=== PATIENT | female | born 1995 | race Caucasian/White ===

== ENCOUNTER 2016-02-29 00:27 | Emergency (ER) | payer BC ==
[~2016-02-29] VITALS: Ht 157.5 cm; Wt 92.1 kg
[~2016-02-29 00:27] MED LIST: ACETAMINOPHEN500 MG PO; ADVAIR 250/501 DISK IH; BENADRYL25 MG PO; CIPRO500 MG PO; CRANBERRY TABL1 EACH PO; FIORICET,ESG1 TABLET PO; FLEXERIL10 MG PO; FLONASE16 G1 BOTH NARES; IBUPROFEN600 MG PO; ILOTYCIN1 GM RIGHT EYE; LEVO-T75 MCG PO; LEVOTHYROXINE50 MCG PO; LODINE200 MG PO; LODINE400 MG; LORATADINE10 M2 PO; LYRICA PO; MACRODANTIN100 MG PO; METOPROLOL SUCC50 MG PO; MOBIC7.5 MG PO; MOTRIN600 MG PO; MOTRIN800 MG PO; NAPROSYN500 MG PO; NORCO 5/3251 TABLET PO; PREDNISONE20 MG PO; PRENATAL TABLE1 EAC3 PO; PROAIR HFA8.5 GM IH; PROAIR HFA8.5 GM PO; REGLAN10 MG PO; ROPINIROLE HC0.25 MG PO; SINGULAIR10 MG PO; SUMATRIPTAN SUC50 MG PO; TESSALON PERLE100 MG PO; TESSALON200 MG PO; TOPAMAX25 M1 PO; TRAZODONE HCL50 MG PO; VENTOLIN HFA18 GM IH; VIGAMOX 0.60 DROP/3 RIGHT EYE; ZANTAC150 MG PO; ZITHROMAX500 MG PO; ZOFRAN ODT4 MG PO; ZOFRAN4 MG PO; concerta; lyrica; zoloft PO
[2016-02-29 01:22] LABS: BILIRUBIN NEGATIVE; BLOOD NEGATIVE; COLOR YELLOW ((YELLOW)); GLUCOSE (STRIP) NEGATIVE; KETONES NEGATIVE; LEUKOCYTES NEGATIVE; NITRITE NEGATIVE; PH, URINE 7.5 (5-8); PROTEIN (STRIP) NEGATIVE; SPECIFIC GRAVITY 1.023 (1.000-1.030); UROBILINOGEN 0.2 MG/DL (0.2-1.0)
[2016-02-29 01:43] LABS: ADD MIUA? NO; UCUL ADDED? NO
[2016-02-29 01:52] LABS: INTERNAL CONTROL VALID? YES
[2016-02-29] MEDS ORDERED: MOTRIN800 MG PO (02:07)
[2016-02-29 02:30] VITALS: BP 134/95
== END 2016-02-29 02:35 | disposition home or self-care (01) ==
LOC: EME 00:27
PROVIDERS: Emergency Medicine
DX: M54.5 Low back pain (principal); R30.0 Dysuria; Z87.440 Personal history of urinary (tract) infections
CPT/HCPCS: 81003; 84703; 99281; 99284

== ENCOUNTER 2016-03-26 05:42 | Emergency (ER) | payer BC ==
[~2016-03-26] VITALS: Ht 157.5 cm; Wt 90.9 kg
[2016-03-26 07:40] VITALS: BP 125/87
== END 2016-03-26 07:40 | disposition home or self-care (01) ==
LOC: EME 05:42
DX: G43.909 Migraine, unspecified, not intractable, without status migrainosus (principal); M79.7 Fibromyalgia; I10 Essential (primary) hypertension; K21.9 Gastro-esophageal reflux disease without esophagitis
CPT/HCPCS: 99281; 99284; J1200; J1885; J2765; J7030

== ENCOUNTER 2016-04-05 21:24 | Emergency (ER) | payer BC ==
[~2016-04-05] VITALS: Ht 157.5 cm; Wt 92.8 kg
[2016-04-05] MEDS ORDERED: LEVO-T100 MCG PO (22:26)
[2016-04-05 22:35] LABS: ADD MIUA? YES; BILIRUBIN NEGATIVE; BLOOD NEGATIVE; COLOR YELLOW ((YELLOW)); GLUCOSE (STRIP) NEGATIVE; KETONES NEGATIVE; LEUKOCYTES NEGATIVE; NITRITE NEGATIVE; PROTEIN (STRIP) NEGATIVE; SPECIFIC GRAVITY 1.024 (1.000-1.030); UROBILINOGEN 0.2 MG/DL (0.2-1.0)
[2016-04-05 22:48] LABS: HEMATOCRIT 39.8 % (36.0-46.0); MCH 27.5 PG (29.0-34.0); MCHC 34.4 G/DL (30.0-36.0); MCV 79.8 FL (83-99); MEAN PLAT.VOLUME 9.3 uM^3 (9.5-12.4); PLATELET COUNT 254 K/uL (156-360); RBC DIS.WIDTH-CV 13.8 % (11.8-14.6); RED BLOOD COUNT 4.99 M/uL (3.80-5.20); WHITE BLOOD COUNT 11.2 K/uL (4.1-10.2)
[2016-04-05 22:58] LABS: CHLORIDE 105 mEq/L (99-109); POTASSIUM 4.1 mEq/L (3.7-5.4); SODIUM 138 mEq/L (136-147)
[2016-04-05 22:59] LABS: GLUCOSE 93 mg/dL (70-99)
[2016-04-05 23:01] LABS: ANION GAP 10 MEQ/L (2-14)
[2016-04-05 23:03] LABS: GFR ESTIMATE (CALCULATED) > 59 mL/min/
[2016-04-05 23:04] LABS: UREA NITROGEN (BUN) 13 mg/dL (9-23)
[2016-04-05 23:11] LABS: QUANTITATIVE HCG < 4.0 MIU/ML
[2016-04-05 23:14] LABS: BACTERIA RARE /HPF; EPITHELIAL CELLS 1+ /HPF; MUCUS TRACE /LPF; RED BLOOD CELLS 0-5 /HPF (0-5); UCUL ADDED? NO; WHITE BLOOD CELLS 0-5 /HPF (0-5)
[2016-04-05 23:42] VITALS: BP 152/102
== END 2016-04-05 23:43 | disposition home or self-care (01) ==
LOC: EME 21:24
PROVIDERS: Physician Assistant
DX: M54.5 Low back pain (principal); J02.9 Acute pharyngitis, unspecified; J45.909 Unspecified asthma, uncomplicated; I10 Essential (primary) hypertension; K21.9 Gastro-esophageal reflux disease without esophagitis
CPT/HCPCS: 80048; 81003; 84702; 85027; 87651 90; 99281; 99284

== ENCOUNTER 2016-04-08 21:26 | Emergency (ER) | payer BC ==
[~2016-04-08] VITALS: Ht 157.5 cm; Wt 90.2 kg
[~2016-04-08 21:26] MED LIST changes: +LEVO-T100 MCG PO
[2016-04-08] MEDS ORDERED: CEFTIN250 MG PO (23:07)
[2016-04-08 23:51] VITALS: BP 126/105
== END 2016-04-08 23:52 | disposition home or self-care (01) ==
LOC: EXP 21:26 → EME 21:26 → EXP 23:52
DX: J32.9 Chronic sinusitis, unspecified (principal)
CPT/HCPCS: 99281; 99284; J8540

== ENCOUNTER 2016-04-09 15:23 | Emergency (ER) | payer BC ==
[~2016-04-09] VITALS: Ht 157.5 cm; Wt 89.9 kg
[~2016-04-09 15:23] MED LIST changes: +CEFTIN250 MG PO
[2016-04-09 17:10] LABS: HEMATOCRIT 42.1 % (36.0-46.0); MCH 27.6 PG (29.0-34.0); MCHC 34.9 G/DL (30.0-36.0); MCV 79.1 FL (83-99); MEAN PLAT.VOLUME 9.3 uM^3 (9.5-12.4); PLATELET COUNT 273 K/uL (156-360); RBC DIS.WIDTH-CV 13.9 % (11.8-14.6); RBC DIS.WIDTH-SD 39.8 % (39-53); RED BLOOD COUNT 5.32 M/uL (3.80-5.20); WHITE BLOOD COUNT 11.4 K/uL (4.1-10.2)
[2016-04-09 17:18] LABS: CHLORIDE 108 mEq/L (99-109); POTASSIUM 4.3 mEq/L (3.7-5.4)
[2016-04-09 17:19] LABS: SODIUM 140 mEq/L (136-147)
[2016-04-09 17:20] LABS: GLUCOSE 93 mg/dL (70-99)
[2016-04-09 17:22] LABS: ANION GAP 11 MEQ/L (2-14)
[2016-04-09 17:24] LABS: GFR ESTIMATE (CALCULATED) > 59 mL/min/
[2016-04-09 17:25] LABS: UREA NITROGEN (BUN) 11 mg/dL (9-23)
[2016-04-09 17:31] LABS: TROP-I INTERPRETATION NEGATIVE; TROPONIN-I < 0.01 ng/mL (0.0-0.30)
[2016-04-09 17:33] LABS: QUANTITATIVE HCG < 4.0 MIU/ML
[2016-04-09 18:00] LABS: ADD MIUA? YES; BILIRUBIN NEGATIVE; BLOOD SMALL; COLOR YELLOW ((YELLOW)); GLUCOSE (STRIP) NEGATIVE; KETONES 5; LEUKOCYTES NEGATIVE; NITRITE NEGATIVE; PROTEIN (STRIP) NEGATIVE; SPECIFIC GRAVITY 1.013 (1.000-1.030); UROBILINOGEN 0.2 MG/DL (0.2-1.0)
[2016-04-09 18:04] LABS: BACTERIA NONE SEEN /HPF; EPITHELIAL CELLS RARE /HPF; MUCUS TRACE /LPF; RED BLOOD CELLS 0-5 /HPF (0-5); UCUL ADDED? NO; WHITE BLOOD CELLS 0-5 /HPF (0-5)
[2016-04-09 20:24] LABS: TROP-I INTERPRETATION NEGATIVE; TROPONIN-I < 0.01 ng/mL (0.0-0.30)
[2016-04-09 21:15] VITALS: BP 130/90
== END 2016-04-09 21:16 | disposition home or self-care (01) ==
LOC: EME 15:23
PROVIDERS: Nurse Practitioner Family
DX: R07.9 Chest pain, unspecified (principal); R06.02 Shortness of breath; M79.602 Pain in left arm; E06.3 Autoimmune thyroiditis
CPT/HCPCS: 71020; 80048; 81003; 84484; 84702; 85027; 93005; 94640; 99281; 99284

== ENCOUNTER 2016-05-16 21:38 | Emergency (ER) | payer BC ==
[~2016-05-16] VITALS: Ht 154.9 cm; Wt 91.6 kg
[2016-05-17 01:58] LABS: INTERNAL CONTROL VALID? YES
[2016-05-17 02:04] LABS: ADD MIUA? YES; BILIRUBIN NEGATIVE; BLOOD NEGATIVE; COLOR YELLOW ((YELLOW)); GLUCOSE (STRIP) NEGATIVE; KETONES NEGATIVE; LEUKOCYTES SMALL; NITRITE NEGATIVE; PROTEIN (STRIP) NEGATIVE; SPECIFIC GRAVITY 1.014 (1.000-1.030); UROBILINOGEN 0.2 MG/DL (0.2-1.0)
[2016-05-17 02:06] VITALS: BP 137/92
[2016-05-17 02:17] LABS: BACTERIA NONE SEEN /HPF; EPITHELIAL CELLS 2+ /HPF; MUCUS TRACE /LPF; RED BLOOD CELLS 0-5 /HPF (0-5); UCUL ADDED? NO
== END 2016-05-17 02:07 | disposition home or self-care (01) ==
LOC: EME 21:38
PROVIDERS: Emergency Medicine
DX: G43.909 Migraine, unspecified, not intractable, without status migrainosus (principal); I10 Essential (primary) hypertension; J45.909 Unspecified asthma, uncomplicated; M79.7 Fibromyalgia; K21.9 Gastro-esophageal reflux disease without esophagitis; E06.3 Autoimmune thyroiditis
CPT/HCPCS: 81003; 84703; 99281; 99283; Q0169

== ENCOUNTER 2016-06-26 13:49 | Emergency (ER) | payer BC ==
[~2016-06-26] VITALS: Ht 157.5 cm; Wt 90.3 kg
[2016-06-26 14:40] LABS: HEMATOCRIT 44.1 % (36.0-46.0); MCH 27.5 PG (29.0-34.0); MCHC 33.3 G/DL (30.0-36.0); MCV 82.6 FL (83-99); MEAN PLAT.VOLUME 9.2 uM^3 (9.5-12.4); PLATELET COUNT 282 K/uL (156-360); RED BLOOD COUNT 5.34 M/uL (3.80-5.20); WHITE BLOOD COUNT 10.5 K/uL (4.1-10.2)
[2016-06-26 14:52] LABS: CHLORIDE 106 mEq/L (99-109); POTASSIUM 4.1 mEq/L (3.7-5.4); SODIUM 140 mEq/L (136-147)
[2016-06-26 14:54] LABS: GLUCOSE 94 mg/dL (70-99)
[2016-06-26 14:55] LABS: ANION GAP 9 MEQ/L (2-14)
[2016-06-26 14:56] LABS: TOTAL BILIRUBIN 0.3 mg/dL (0.0-1.0)
[2016-06-26 14:57] LABS: ALKALINE PHOSPHATASE 81 IU/L (3-129)
[2016-06-26 14:58] LABS: GFR ESTIMATE (CALCULATED) > 59 mL/min/
[2016-06-26 14:59] LABS: UREA NITROGEN (BUN) 12 mg/dL (9-23)
[2016-06-26 15:00] LABS: TROP-I INTERPRETATION NEGATIVE; TROPONIN-I < 0.01 ng/mL (0.0-0.30)
[2016-06-26 15:02] LABS: QUANTITATIVE HCG < 4.0 MIU/ML
[2016-06-26 15:11] LABS: ADD MIUA? YES; BILIRUBIN NEGATIVE; BLOOD NEGATIVE; COLOR YELLOW ((YELLOW)); GLUCOSE (STRIP) NEGATIVE; KETONES NEGATIVE; LEUKOCYTES NEGATIVE; NITRITE NEGATIVE; PROTEIN (STRIP) NEGATIVE; SPECIFIC GRAVITY 1.013 (1.000-1.030); UROBILINOGEN 0.2 MG/DL (0.2-1.0)
[2016-06-26 15:15] LABS: BACTERIA NONE SEEN /HPF; EPITHELIAL CELLS RARE /HPF; MUCUS NONE SEEN /LPF; RED BLOOD CELLS NONE SEEN /HPF (0-5); UCUL ADDED? NO; WHITE BLOOD CELLS NONE SEEN /HPF (0-5)
[2016-06-26] MEDS ORDERED: ZOFRAN ODT4 MG PO (16:57)
[2016-06-26 17:03] VITALS: BP 146/82
== END 2016-06-26 17:20 | disposition home or self-care (01) ==
LOC: EME 13:49
PROVIDERS: Physician Assistant
DX: R11.2 Nausea with vomiting, unspecified (principal); B34.9 Viral infection, unspecified; J45.909 Unspecified asthma, uncomplicated; I10 Essential (primary) hypertension; G43.909 Migraine, unspecified, not intractable, without status migrainosus; K21.9 Gastro-esophageal reflux disease without esophagitis; M79.7 Fibromyalgia; E06.3 Autoimmune thyroiditis
CPT/HCPCS: 80053; 81003; 84443; 84484; 84702; 85027; 93005; 99281; 99284; J7030

== ENCOUNTER 2016-07-03 21:15 | Emergency (ER) | payer BC ==
[~2016-07-03] VITALS: Ht 157.5 cm; Wt 90.5 kg
[2016-07-03 21:50] LABS: ADD MIUA? NO; BILIRUBIN NEGATIVE; BLOOD NEGATIVE; COLOR STRAW ((YELLOW)); GLUCOSE (STRIP) NEGATIVE; KETONES NEGATIVE; LEUKOCYTES NEGATIVE; NITRITE NEGATIVE; PROTEIN (STRIP) NEGATIVE; SPECIFIC GRAVITY 1.005 (1.000-1.030); UROBILINOGEN 0.2 MG/DL (0.2-1.0)
[2016-07-03 22:04] LABS: INTERNAL CONTROL VALID? YES
[2016-07-03 23:22] VITALS: BP 139/100
== END 2016-07-03 23:24 | disposition home or self-care (01) ==
LOC: EME 21:15
PROVIDERS: Nurse Practitioner Family
DX: R51 Headache (principal)
CPT/HCPCS: 81003; 84703; 99281; 99284; J1200; J1885; J2765; J7030

== ENCOUNTER 2016-09-06 23:10 | Emergency (ER) | payer BC ==
[~2016-09-06] VITALS: Ht 154.9 cm; Wt 91.3 kg
[2016-09-07 00:32] LABS: HEMATOCRIT 43.5 % (36.0-46.0); MCH 27.2 PG (29.0-34.0); MCHC 33.3 G/DL (30.0-36.0); MCV 81.6 FL (83-99); MEAN PLAT.VOLUME 9.5 uM^3 (9.5-12.4); PLATELET COUNT 280 K/uL (156-360); RBC DIS.WIDTH-CV 13.2 % (11.8-14.6); RED BLOOD COUNT 5.33 M/uL (3.80-5.20)
[2016-09-07 00:46] LABS: CHLORIDE 104 mEq/L (99-109); POTASSIUM 3.7 mEq/L (3.7-5.4); SODIUM 138 mEq/L (136-147)
[2016-09-07 00:47] LABS: GLUCOSE 85 mg/dL (70-99)
[2016-09-07 00:49] LABS: ANION GAP 9 MEQ/L (2-14)
[2016-09-07 00:51] LABS: GFR ESTIMATE (CALCULATED) > 59 mL/min/
[2016-09-07 00:52] LABS: UREA NITROGEN (BUN) 8 mg/dL (9-23)
[2016-09-07 00:58] LABS: TROP-I INTERPRETATION NEGATIVE; TROPONIN-I < 0.01 ng/mL (0.0-0.30)
[2016-09-07 03:12] LABS: BILIRUBIN NEGATIVE; BLOOD NEGATIVE; COLOR YELLOW ((YELLOW)); GLUCOSE (STRIP) NEGATIVE; KETONES 5; LEUKOCYTES NEGATIVE; NITRITE NEGATIVE; PROTEIN (STRIP) 30; SPECIFIC GRAVITY 1.026 (1.000-1.030); UROBILINOGEN 0.2 MG/DL (0.2-1.0)
[2016-09-07 03:13] LABS: ADD MIUA? NO; UCUL ADDED? NO
[2016-09-07 03:18] LABS: QUANTITATIVE HCG < 4.0 MIU/ML
[2016-09-07 03:47] VITALS: BP 145/100
== END 2016-09-07 03:48 | disposition home or self-care (01) ==
LOC: EXP 23:10 → EME 23:10 → EXP 09-07 03:48
PROVIDERS: Emergency Medicine
DX: R07.9 Chest pain, unspecified (principal); R55 Syncope and collapse; D72.829 Elevated white blood cell count, unspecified; R00.2 Palpitations; M54.2 Cervicalgia; I10 Essential (primary) hypertension; E06.3 Autoimmune thyroiditis
CPT/HCPCS: 71020; 80048; 81003; 84484; 84702; 85027; 93005; 99281; 99284

== ENCOUNTER 2016-10-22 01:50 | Emergency (ER) | payer BC ==
[~2016-10-22] VITALS: Ht 157.5 cm; Wt 89.8 kg
[2016-10-22 03:03] LABS: EOSINOPHIL (%) 0.3 % (0-5); HEMATOCRIT 34.9 % (36.0-46.0); IMMATURE GRANULOCYTE (%) 0.4 % (0.0-0.7); LYMPHOCYTE COUNT 3.1 K/uL (1.0-2.8); MCH 27.2 PG (29.0-34.0); MCHC 32.4 G/DL (30.0-36.0); MCV 84.1 FL (83-99); MEAN PLAT.VOLUME 9.5 uM^3 (9.5-12.4); MONOCYTE (%) 5.8 % (3-12); MONOCYTE COUNT 0.6 K/uL (0-0.8); NEUTROPHIL (%) 61.7 % (45-76); PLATELET COUNT 266 K/uL (156-360); RBC DIS.WIDTH-CV 12.8 % (11.8-14.6); RBC DIS.WIDTH-SD 38.7 % (39-53); RED BLOOD COUNT 4.15 M/uL (3.80-5.20); WHITE BLOOD COUNT 9.8 K/uL (4.1-10.2)
[2016-10-22 03:10] LABS: CHLORIDE 106 mEq/L (99-109)
[2016-10-22 03:11] LABS: POTASSIUM 3.7 mEq/L (3.7-5.4); SODIUM 138 mEq/L (136-147)
[2016-10-22 03:13] LABS: GLUCOSE 90 mg/dL (70-99)
[2016-10-22 03:14] LABS: ANION GAP 8 MEQ/L (2-14)
[2016-10-22 03:15] LABS: TOTAL BILIRUBIN 0.2 mg/dL (0.0-1.0)
[2016-10-22 03:16] LABS: ALKALINE PHOSPHATASE 50 IU/L (3-129); GFR ESTIMATE (CALCULATED) > 59 mL/min/
[2016-10-22 03:18] LABS: UREA NITROGEN (BUN) 10 mg/dL (9-23)
[2016-10-22 03:20] LABS: LIPASE 14 U/L (1.0-51.0)
[2016-10-22 03:26] LABS: QUANTITATIVE HCG < 4.0 MIU/ML
[2016-10-22] MEDS ORDERED: ZOFRAN ODT4 MG PO (04:04)
[2016-10-22 04:12] VITALS: BP 121/80
== END 2016-10-22 04:13 | disposition home or self-care (01) ==
LOC: EME 01:50
PROVIDERS: Emergency Medicine
DX: R10.13 Epigastric pain (principal); R11.2 Nausea with vomiting, unspecified; R19.7 Diarrhea, unspecified; I10 Essential (primary) hypertension; J45.909 Unspecified asthma, uncomplicated; K21.9 Gastro-esophageal reflux disease without esophagitis; M79.7 Fibromyalgia; E06.3 Autoimmune thyroiditis; G25.81 Restless legs syndrome
CPT/HCPCS: 74177; 80053; 83690; 84702; 85025; 99281; 99284; J2270; J2405; J7030

== ENCOUNTER 2016-12-02 02:58 | Emergency (ER) | payer OTHER, BC ==
[~2016-12-02] VITALS: Ht 170.2 cm; Wt 89.9 kg
[2016-12-02] MEDS ORDERED: FLEXERIL10 MG PO (04:25)
[2016-12-02] MEDS ORDERED: PERCOCET 5/31 TABLET PO (04:25)
[2016-12-02 04:26] VITALS: BP 137/88
== END 2016-12-02 04:43 | disposition home or self-care (01) ==
LOC: EXP 02:58 → EME 02:58 → EXP 04:43
DX: S39.012A Strain of muscle, fascia and tendon of lower back, initial encounter (principal); V40.5XXA Car driver injured in collision with pedestrian or animal in traffic accident, initial encounter; Z88.0 Allergy status to penicillin
CPT/HCPCS: 72100; 99281; 99284

== ENCOUNTER 2016-12-04 14:18 | Emergency (ER) | payer OTHER, BC ==
[~2016-12-04] VITALS: Ht 157.5 cm; Wt 88.5 kg
[~2016-12-04 14:18] MED LIST changes: +PERCOCET 5/31 TABLET PO
[2016-12-04 18:46] VITALS: BP 146/116
== END 2016-12-04 18:47 | disposition home or self-care (01) ==
LOC: EME 14:18
DX: S39.012A Strain of muscle, fascia and tendon of lower back, initial encounter (principal); R07.81 Pleurodynia; V40.5XXA Car driver injured in collision with pedestrian or animal in traffic accident, initial encounter; Y92.410 Unspecified street and highway as the place of occurrence of the external cause
CPT/HCPCS: 71020; 99281; 99284; J1885

== ENCOUNTER 2017-02-02 18:09 | Emergency (ER) | payer BC ==
[~2017-02-02] VITALS: Ht 157.5 cm; Wt 90.4 kg
[2017-02-02 18:45] LABS: HEMATOCRIT 41.2 % (36.0-46.0); MCH 24.6 PG (29.0-34.0); MCV 76.7 FL (83-99); MEAN PLAT.VOLUME 9.5 uM^3 (9.5-12.4); PLATELET COUNT 256 K/uL (156-360); RBC DIS.WIDTH-CV 16.4 % (11.8-14.6); RBC DIS.WIDTH-SD 45.1 % (39-53); RED BLOOD COUNT 5.37 M/uL (3.80-5.20); WHITE BLOOD COUNT 9.2 K/uL (4.1-10.2)
[2017-02-02 18:55] LABS: CHLORIDE 105 mEq/L (99-109); POTASSIUM 4.2 mEq/L (3.7-5.4)
[2017-02-02 18:56] LABS: SODIUM 139 mEq/L (136-147)
[2017-02-02 18:58] LABS: GLUCOSE 95 mg/dL (70-99)
[2017-02-02 18:59] LABS: ANION GAP 8 MEQ/L (2-14)
[2017-02-02 19:00] LABS: TOTAL BILIRUBIN 0.4 mg/dL (0.0-1.0)
[2017-02-02 19:01] LABS: ALKALINE PHOSPHATASE 76 IU/L (3-129); GFR ESTIMATE (CALCULATED) > 59 mL/min/
[2017-02-02 19:03] LABS: UREA NITROGEN (BUN) 10 mg/dL (9-23)
[2017-02-02 19:11] LABS: QUANTITATIVE HCG < 4.0 MIU/ML
[2017-02-02 20:57] LABS: ADD MIUA? YES; BILIRUBIN NEGATIVE; BLOOD NEGATIVE; COLOR YELLOW ((YELLOW)); GLUCOSE (STRIP) NEGATIVE; KETONES NEGATIVE; LEUKOCYTES SMALL; NITRITE NEGATIVE; PROTEIN (STRIP) 30; SPECIFIC GRAVITY 1.024 (1.000-1.030); UROBILINOGEN 0.2 MG/DL (0.2-1.0)
[2017-02-02 21:02] LABS: BACTERIA RARE /HPF; EPITHELIAL CELLS 4+ /HPF; MUCUS TRACE /LPF; RED BLOOD CELLS 0-5 /HPF (0-5); UCUL ADDED? YES
[2017-02-02] MEDS ORDERED: ZOFRAN ODT4 MG PO (22:33)
[2017-02-02 22:42] VITALS: BP 120/71
== END 2017-02-02 22:43 | disposition home or self-care (01) ==
LOC: EME 18:09 → RME 18:09
DX: R11.2 Nausea with vomiting, unspecified (principal); M79.7 Fibromyalgia; I10 Essential (primary) hypertension; J45.909 Unspecified asthma, uncomplicated; K21.9 Gastro-esophageal reflux disease without esophagitis; E06.3 Autoimmune thyroiditis; Z88.2 Allergy status to sulfonamides; Z88.0 Allergy status to penicillin; Z88.1 Allergy status to other antibiotic agents
CPT/HCPCS: 80053; 81003; 84702; 85027; 87086; 99281; 99285

== ENCOUNTER 2017-02-04 19:51 | Emergency (ER) | payer BC ==
[~2017-02-04] VITALS: Ht 157.5 cm; Wt 91.9 kg
[2017-02-04 20:13] LABS: HEMATOCRIT 41.1 % (36.0-46.0); MCH 24.8 PG (29.0-34.0); MCHC 32.6 G/DL (30.0-36.0); MCV 76.1 FL (83-99); MEAN PLAT.VOLUME 9.2 uM^3 (9.5-12.4); PLATELET COUNT 270 K/uL (156-360); RBC DIS.WIDTH-CV 16.4 % (11.8-14.6); RBC DIS.WIDTH-SD 44.6 % (39-53); WHITE BLOOD COUNT 7.8 K/uL (4.1-10.2)
[2017-02-04 20:21] LABS: CHLORIDE 108 mEq/L (99-109); POTASSIUM 4.2 mEq/L (3.7-5.4); SODIUM 139 mEq/L (136-147)
[2017-02-04 20:23] LABS: GLUCOSE 114 mg/dL (70-99)
[2017-02-04 20:24] LABS: ANION GAP 8 MEQ/L (2-14)
[2017-02-04 20:26] LABS: ADD MIUA? YES; BILIRUBIN NEGATIVE; BLOOD NEGATIVE; COLOR YELLOW ((YELLOW)); GLUCOSE (STRIP) NEGATIVE; KETONES NEGATIVE; LEUKOCYTES NEGATIVE; NITRITE NEGATIVE; PROTEIN (STRIP) NEGATIVE; SPECIFIC GRAVITY 1.023 (1.000-1.030); UROBILINOGEN 0.2 MG/DL (0.2-1.0)
[2017-02-04 20:27] LABS: ALKALINE PHOSPHATASE 75 IU/L (3-129); GFR ESTIMATE (CALCULATED) > 59 mL/min/; TOTAL BILIRUBIN 0.3 mg/dL (0.0-1.0)
[2017-02-04 20:28] LABS: UREA NITROGEN (BUN) 9 mg/dL (9-23)
[2017-02-04 20:30] LABS: LIPASE 18 U/L (1.0-51.0)
[2017-02-04 20:37] LABS: QUANTITATIVE HCG < 4.0 MIU/ML
[2017-02-04 20:57] LABS: AMORPHOUS PHOSPHATE CRYSTALS 4+; BACTERIA NONE SEEN /HPF; CASTS PRESENT /LPF; COARSE GRANULAR CASTS 0-5 /LPF; CRYSTALS PRESENT; EPITHELIAL CELLS 1+ /HPF; MUCUS NONE SEEN /LPF; RED BLOOD CELLS NONE SEEN /HPF (0-5); UCUL ADDED? NO; WHITE BLOOD CELLS NONE SEEN /HPF (0-5)
[2017-02-04] MEDS ORDERED: NAPROXEN500 MG PO (22:13)
[2017-02-04 23:03] VITALS: BP 161/98
== END 2017-02-04 23:04 | disposition home or self-care (01) ==
LOC: EME 19:51
DX: N83.201 Unspecified ovarian cyst, right side (principal); E06.3 Autoimmune thyroiditis; M79.7 Fibromyalgia; K21.9 Gastro-esophageal reflux disease without esophagitis; J45.909 Unspecified asthma, uncomplicated; I10 Essential (primary) hypertension; G25.81 Restless legs syndrome; Z88.2 Allergy status to sulfonamides; Z88.0 Allergy status to penicillin
CPT/HCPCS: 74177; 80053; 81003; 83690; 84702; 85027; 99281; 99284; J1885; J2405

== ENCOUNTER 2017-02-06 02:21 | Emergency (ER) | payer BC ==
[~2017-02-06] VITALS: Ht 157.5 cm; Wt 91.3 kg
[~2017-02-06 02:21] MED LIST changes: +NAPROXEN500 MG PO
[2017-02-06 02:44] LABS: HEMATOCRIT 41.8 % (36.0-46.0); MCH 24.6 PG (29.0-34.0); MCHC 32.3 G/DL (30.0-36.0); MCV 76.3 FL (83-99); MEAN PLAT.VOLUME 9.2 uM^3 (9.5-12.4); PLATELET COUNT 270 K/uL (156-360); RBC DIS.WIDTH-CV 16.2 % (11.8-14.6); RBC DIS.WIDTH-SD 44.7 % (39-53); RED BLOOD COUNT 5.48 M/uL (3.80-5.20)
[2017-02-06 02:53] LABS: CHLORIDE 110 mEq/L (99-109); POTASSIUM 4.2 mEq/L (3.7-5.4); SODIUM 140 mEq/L (136-147)
[2017-02-06 02:55] LABS: GLUCOSE 102 mg/dL (70-99)
[2017-02-06 02:56] LABS: ANION GAP 8 MEQ/L (2-14)
[2017-02-06 02:58] LABS: ADD MIUA? YES; BILIRUBIN NEGATIVE; BLOOD NEGATIVE; COLOR YELLOW ((YELLOW)); GLUCOSE (STRIP) NEGATIVE; KETONES NEGATIVE; LEUKOCYTES TRACE; NITRITE NEGATIVE; PROTEIN (STRIP) 30; SPECIFIC GRAVITY 1.036 (1.000-1.030); UROBILINOGEN 0.2 MG/DL (0.2-1.0)
[2017-02-06 02:59] LABS: GFR ESTIMATE (CALCULATED) > 59 mL/min/
[2017-02-06 03:00] LABS: UREA NITROGEN (BUN) 12 mg/dL (9-23)
[2017-02-06 03:05] LABS: BACTERIA RARE /HPF; BUDDING YEAST RARE; EPITHELIAL CELLS 2+ /HPF; MUCUS TRACE /LPF; UCUL ADDED? NO; WHITE BLOOD CELLS 0-5 /HPF (0-5)
[2017-02-06 03:07] LABS: QUANTITATIVE HCG < 4.0 MIU/ML
[2017-02-06 03:41] LABS: ALKALINE PHOSPHATASE 73 IU/L (3-129)
[2017-02-06 03:42] LABS: TOTAL BILIRUBIN 0.2 mg/dL (0.0-1.0)
[2017-02-06 03:50] LABS: TROP-I INTERPRETATION NEGATIVE; TROPONIN-I < 0.01 ng/mL (0.0-0.30)
[2017-02-06 03:57] LABS: LIPASE 17 U/L (1.0-51.0)
[2017-02-06] MEDS ORDERED: CARAFATE1 GM PO (05:30)
[2017-02-06] MEDS ORDERED: MAALOX ADVANCE355 ML PO (05:30)
[2017-02-06 05:54] LABS: TROP-I INTERPRETATION NEGATIVE; TROPONIN-I < 0.01 ng/mL (0.0-0.30)
[2017-02-06 05:58] VITALS: BP 111/88
== END 2017-02-06 06:00 | disposition home or self-care (01) ==
LOC: EME 02:21
PROVIDERS: Emergency Medicine
DX: R10.9 Unspecified abdominal pain (principal); R07.9 Chest pain, unspecified; J45.909 Unspecified asthma, uncomplicated; M79.7 Fibromyalgia; I10 Essential (primary) hypertension; G43.909 Migraine, unspecified, not intractable, without status migrainosus; K21.9 Gastro-esophageal reflux disease without esophagitis; Z88.2 Allergy status to sulfonamides; Z88.0 Allergy status to penicillin; Z88.1 Allergy status to other antibiotic agents
CPT/HCPCS: 76705; 80053; 81003; 83690; 84484; 84702; 85027; 93005; J2405; J3010

== ENCOUNTER → 2017-02-09 | Outpatient (CLI) | payer BC ==
[~2017-02-09] MED LIST changes: +CARAFATE1 GM PO; +MAALOX ADVANCE355 ML PO
== END | disposition home or self-care (01) ==
LOC: NUC 07:39
DX: R10.11 Right upper quadrant pain (principal); R11.0 Nausea
CPT/HCPCS: 78226; A9537

== ENCOUNTER → 2017-02-21 | Outpatient (CLI) | payer BC ==
[~2017-02-21] VITALS: Ht 157.5 cm; Wt 92.5 kg
[~2017-02-21] MED LIST changes: +HEADACHE RELIE1 EAC3 PO; +SYNTHROID50 MCG PO
== END | disposition home or self-care (01) ==
LOC: AMB 09:01
DX: K29.90 Gastroduodenitis, unspecified, without bleeding (principal); K80.10 Calculus of gallbladder with chronic cholecystitis without obstruction; J45.909 Unspecified asthma, uncomplicated; F41.8 Other specified anxiety disorders; E03.9 Hypothyroidism, unspecified; Z88.0 Allergy status to penicillin; Z88.2 Allergy status to sulfonamides
CPT/HCPCS: 88305; 88342 TC; J2250

== ENCOUNTER 2017-03-26 10:55 | Day surgery (SDC) | payer BC ==
[~2017-03-26] VITALS: Ht 157.5 cm; Wt 93.4 kg
[~2017-03-26 10:55] MED LIST changes: +PROTONIX40 MG PO
[2017-03-26 12:01] VITALS: BP 133/92
[2017-03-26] MEDS ORDERED: COLACE100 MG PO (13:10)
[2017-03-26] MEDS ORDERED: PERCOCET 5/31 TABLET PO (13:10)
[2017-03-26 16:35] VITALS: BP 133/85
[2017-03-26 17:30] VITALS: BP 128/75
[2017-03-26 19:06] VITALS: BP 123/75
[2017-03-27] MEDS ORDERED: CELEXA20 MG PO (07:37)
[2017-03-27] MEDS ORDERED: VERAPAMIL HCL120 M2 PO (07:37)
== END 2017-03-26 19:12 | disposition home or self-care (01) ==
LOC: SDC 10:55
PROC: 0FT44ZZ Resection of Gallbladder, Percutaneous Endoscopic Approach (ICD-10-PCS; principal; 2017-03-26)
DX: K80.10 Calculus of gallbladder with chronic cholecystitis without obstruction (principal); E06.3 Autoimmune thyroiditis
CPT/HCPCS: 88304; J0131; J1100; J1170; J1580; J1885; J2250; J2405; J2710; J2765; J3010; J7050

== ENCOUNTER 2017-03-27 04:24 | Observation (INO) | payer BC ==
[~2017-03-27] VITALS: Ht 157.5 cm; Wt 95.6 kg
[~2017-03-27 04:24] MED LIST changes: +COLACE100 MG PO
[2017-03-27 05:37] LABS: BASOPHIL (%) 0.1 % (0-1); EOSINOPHIL (%) 0 % (0-5); HEMATOCRIT 36.7 % (36.0-46.0); HEMOGLOBIN 12.3 G/DL (11.9-15.5); IMMATURE GRANULOCYTE (%) 0.5 % (0.0-0.7); LYMPHOCYTE (%) 12.3 % (15-42); LYMPHOCYTE COUNT 1.4 K/uL (1.0-2.8); MCH 25.6 PG (29.0-34.0); MCHC 33.5 G/DL (30.0-36.0); MCV 76.5 FL (83-99); MONOCYTE (%) 7.7 % (3-12); MONOCYTE COUNT 0.9 K/uL (0-0.8); NEUTROPHIL (%) 79.4 % (45-76); NEUTROPHIL COUNT 9.2 K/uL (1.8-6.4); PLATELET COUNT 258 K/uL (156-360); RBC DIS.WIDTH-CV 14.7 % (11.8-14.6); RBC DIS.WIDTH-SD 40.3 % (39-53); WHITE BLOOD COUNT 11.6 K/uL (4.1-10.2)
[2017-03-27 05:41] LABS: INTER. NORMALIZED RATIO 1.2
[2017-03-27 05:43] LABS: PTT 33.8 SEC (25-37)
[2017-03-27 05:51] LABS: TROP-I INTERPRETATION NEGATIVE; TROPONIN-I < 0.01 ng/mL (0.0-0.30)
[2017-03-27 05:55] LABS: ALBUMIN 4.1 g/dL (3.2-4.8)
[2017-03-27 05:56] LABS: CHLORIDE 106 mEq/L (99-109); POTASSIUM 4.1 mEq/L (3.7-5.4); SODIUM 138 mEq/L (136-147)
[2017-03-27 05:58] LABS: GLUCOSE 111 mg/dL (70-99); TOTAL PROTEIN 6.7 g/dL (6.4-8.3)
[2017-03-27 06:00] LABS: TOTAL BILIRUBIN 0.3 mg/dL (0.0-1.0)
[2017-03-27 06:02] LABS: ALKALINE PHOSPHATASE 83 IU/L (3-129); CREATININE 0.7 mg/dL (0.6-1.3); GFR ESTIMATE (CALCULATED) > 59 mL/min/
[2017-03-27 06:03] LABS: AST (GOT) 47 IU/L (2-34); DIRECT BILIRUBIN 0.1 mg/dL (0.0-0.3); UREA NITROGEN (BUN) 7 mg/dL (9-23)
[2017-03-27 06:05] LABS: ALT (GPT) 56 IU/L (3-49); LIPASE 3 U/L (1.0-51.0)
[2017-03-27 06:09] LABS: APPEARANCE SL.HAZY ((CLEAR)); BILIRUBIN NEGATIVE; BLOOD NEGATIVE; COLOR YELLOW ((YELLOW)); GLUCOSE (STRIP) NEGATIVE; KETONES NEGATIVE; LEUKOCYTES NEGATIVE; NITRITE NEGATIVE; PROTEIN (STRIP) NEGATIVE; SPECIFIC GRAVITY 1.009 (1.000-1.030); UROBILINOGEN 0.2 MG/DL (0.2-1.0)
[2017-03-27 06:11] LABS: QUANTITATIVE HCG < 4.0 MIU/ML
[2017-03-27 06:17] LABS: BACTERIA RARE /HPF; EPITHELIAL CELLS 3+ /HPF; MUCUS TRACE /LPF; RED BLOOD CELLS 0-5 /HPF (0-5)
[2017-03-27] MEDS ORDERED: CELEXA20 MG PO (07:37)
[2017-03-27] MEDS ORDERED: VERAPAMIL HCL120 M2 PO (07:37)
[2017-03-27 08:50] LABS: HDL CHOLESTEROL 38 MG/DL (Desirable>=50); LDL CHOLESTEROL 156 mg/dL (Desirable<100); NON-HDL CHOLESTEROL 179 mg/dL (Desirable<160); TOTAL CHOLESTEROL 217 mg/dL (Desirable<200); TRIGLYCERIDES 117 MG/DL (Normal: <150)
[2017-03-27 13:11] LABS: TROP-I INTERPRETATION NEGATIVE; TROPONIN-I < 0.01 ng/mL (0.0-0.30)
[2017-03-27 14:29] VITALS: BP 126/76
[2017-03-27 18:46] LABS: TROP-I INTERPRETATION NEGATIVE; TROPONIN-I < 0.01 ng/mL (0.0-0.30)
[2017-03-27 20:00] VITALS: BP 120/88
[2017-03-28 00:12] VITALS: BP 134/95
[2017-03-28 04:17] VITALS: BP 131/87
[2017-03-28 05:14] LABS: HEMATOCRIT 35.7 % (36.0-46.0); HEMOGLOBIN 11.4 G/DL (11.9-15.5); MCH 25.3 PG (29.0-34.0); MCHC 31.9 G/DL (30.0-36.0); MCV 79.3 FL (83-99); PLATELET COUNT 224 K/uL (156-360); RBC DIS.WIDTH-CV 15.1 % (11.8-14.6); RBC DIS.WIDTH-SD 43.3 % (39-53); WHITE BLOOD COUNT 8.8 K/uL (4.1-10.2)
[2017-03-28 05:40] LABS: CHLORIDE 104 MEQ/L (99-109); CREATININE 0.7 MG/DL (0.6-1.3); GFR ESTIMATE (CALCULATED) > 59 mL/min/; GLUCOSE 94 mg/dL (70-99); POTASSIUM 3.8 MEQ/L (3.7-5.4); SODIUM 138 MEQ/L (136-147); UREA NITROGEN (BUN) 6 mg/dL (9-23)
[2017-03-28 08:30] VITALS: BP 132/70
[2017-03-28 11:22] VITALS: BP 136/88
[2017-03-28 15:52] VITALS: BP 131/87
[2017-03-28 20:00] VITALS: BP 135/83
[2017-03-29 00:12] VITALS: BP 128/89
[2017-03-29 04:40] VITALS: BP 126/88
[2017-03-29 06:01] LABS: HEMATOCRIT 38.6 % (36.0-46.0); HEMOGLOBIN 12.5 G/DL (11.9-15.5); MCH 25.4 PG (29.0-34.0); MCHC 32.4 G/DL (30.0-36.0); MCV 78.5 FL (83-99); PLATELET COUNT 239 K/uL (156-360); RBC DIS.WIDTH-CV 14.6 % (11.8-14.6); RBC DIS.WIDTH-SD 40.8 % (39-53); RED BLOOD COUNT 4.92 M/uL (3.80-5.20); WHITE BLOOD COUNT 8.3 K/uL (4.1-10.2)
[2017-03-29 06:19] LABS: ALBUMIN 3.9 G/DL (3.2-4.8); ALKALINE PHOSPHATASE 74 IU/L (3-129); CHLORIDE 102 MEQ/L (99-109); CREATININE 0.8 MG/DL (0.6-1.3); GFR ESTIMATE (CALCULATED) > 59 mL/min/; GLUCOSE 88 mg/dL (70-99); POTASSIUM 3.8 MEQ/L (3.7-5.4); SODIUM 139 MEQ/L (136-147); TOTAL PROTEIN 6.6 G/DL (6.4-8.3); UREA NITROGEN (BUN) 9 mg/dL (9-23)
[2017-03-29 06:21] LABS: ALT (GPT) 91 IU/L (3-49); AST (GOT) 43 IU/L (2-34); TOTAL BILIRUBIN 0.5 MG/DL (0.0-1.0)
[2017-03-29 06:35] LABS: LIPASE 11 U/L (1.0-51.0)
[2017-03-29 08:19] VITALS: BP 125/86
[2017-03-29] MEDS ORDERED: ONDANSETRON ODT4 MG PO (09:36)
== END 2017-03-29 11:31 | disposition home or self-care (01) ==
LOC: EME 04:24 → EDOF 07:43 → 5WEST 07:43 → EDOF 07:43 → ENRESERV 07:48 → 5WEST 13:51
PROVIDERS: Family Medicine; Internal Medicine; Physician Assistant
DX: R11.2 Nausea with vomiting, unspecified (principal); R00.2 Palpitations; R07.89 Other chest pain; R42 Dizziness and giddiness; Z98.890 Other specified postprocedural states; Z90.49 Acquired absence of other specified parts of digestive tract; E06.3 Autoimmune thyroiditis; M79.7 Fibromyalgia; R01.1 Cardiac murmur, unspecified; Z79.82 Long term (current) use of aspirin; Z82.49 Family history of ischemic heart disease and other diseases of the circulatory system; D72.829 Elevated white blood cell count, unspecified; Z88.0 Allergy status to penicillin; Z88.1 Allergy status to other antibiotic agents; Z88.2 Allergy status to sulfonamides; Z91.018 Allergy to other foods; Z91.09 Other allergy status, other than to drugs and biological substances
CPT/HCPCS: 71275; 80048; 80053; 80061; 80076; 81003; 83690; 84443; 84484; 84702; 85025; 85027; 85610; 85730; 93005; 99281; 99285; G0378; J1200; J1650; J2270; J2405; J3010; J7030

== ENCOUNTER 2017-05-03 00:49 | Emergency (ER) | payer BC ==
[~2017-05-03] VITALS: Ht 157.5 cm; Wt 91.0 kg
[~2017-05-03 00:49] MED LIST changes: +CELEXA20 MG PO; +ONDANSETRON ODT4 MG PO; +VERAPAMIL HCL120 M2 PO
[2017-05-03 01:13] LABS: HEMATOCRIT 40.5 % (36.0-46.0); HEMOGLOBIN 13.4 G/DL (11.9-15.5); MCHC 33.1 G/DL (30.0-36.0); MCV 78.6 FL (83-99); PLATELET COUNT 236 K/uL (156-360); RBC DIS.WIDTH-CV 14.2 % (11.8-14.6); RBC DIS.WIDTH-SD 40.4 % (39-53); RED BLOOD COUNT 5.15 M/uL (3.80-5.20); WHITE BLOOD COUNT 8.7 K/uL (4.1-10.2)
[2017-05-03 01:22] LABS: CHLORIDE 107 mEq/L (99-109); SODIUM 141 mEq/L (136-147)
[2017-05-03 01:23] LABS: GLUCOSE 92 mg/dL (70-99)
[2017-05-03 01:27] LABS: CREATININE 0.8 mg/dL (0.6-1.3); GFR ESTIMATE (CALCULATED) > 59 mL/min/
[2017-05-03 01:28] LABS: UREA NITROGEN (BUN) 10 mg/dL (9-23)
[2017-05-03 02:50] LABS: D-DIMER ELISA < 150.00 ng/mLDDU (<230)
[2017-05-03 03:03] LABS: QUANTITATIVE HCG < 4.0 MIU/ML; TROP-I INTERPRETATION NEGATIVE; TROPONIN-I < 0.01 ng/mL (0.0-0.30)
[2017-05-03 03:56] LABS: APPEARANCE CLEAR ((CLEAR)); BILIRUBIN NEGATIVE; BLOOD NEGATIVE; COLOR STRAW ((YELLOW)); GLUCOSE (STRIP) NEGATIVE; KETONES NEGATIVE; LEUKOCYTES NEGATIVE; NITRITE NEGATIVE; PROTEIN (STRIP) NEGATIVE; SPECIFIC GRAVITY 1.014 (1.000-1.030); UCUL ADDED? NO; UROBILINOGEN 0.2 MG/DL (0.2-1.0)
[2017-05-03] MEDS ORDERED: MECLIZINE HCL25 MG PO (04:27)
[2017-05-03 04:40] VITALS: BP 133/82
[2017-05-03 07:51] LABS: THYROTROPIN (TSH) 1.6 MIU/L (0.4-5.5)
== END 2017-05-03 04:42 | disposition home or self-care (01) ==
LOC: EME 00:49
PROVIDERS: Emergency Medicine
DX: R42 Dizziness and giddiness (principal); R55 Syncope and collapse; R51 Headache; H53.8 Other visual disturbances; E06.3 Autoimmune thyroiditis
CPT/HCPCS: 70450; 71046; 80048; 81003; 84443; 84484; 84702; 85027; 85379; 93005; 99281; 99284

== ENCOUNTER 2017-07-04 19:00 | Emergency (ER) | payer BC ==
[~2017-07-04] VITALS: Ht 157.5 cm; Wt 89.7 kg
[~2017-07-04 19:00] MED LIST changes: +MECLIZINE HCL25 MG PO
[2017-07-04 19:43] LABS: HEMATOCRIT 41.7 % (36.0-46.0); HEMOGLOBIN 14.3 G/DL (11.9-15.5); MCH 26.7 PG (29.0-34.0); MCHC 34.3 G/DL (30.0-36.0); MCV 77.9 FL (83-99); PLATELET COUNT 231 K/uL (156-360); RBC DIS.WIDTH-CV 14.7 % (11.8-14.6); RBC DIS.WIDTH-SD 41.1 % (39-53); RED BLOOD COUNT 5.35 M/uL (3.80-5.20); WHITE BLOOD COUNT 8.5 K/uL (4.1-10.2)
[2017-07-04 19:52] LABS: CHLORIDE 107 mEq/L (99-109); SODIUM 139 mEq/L (136-147)
[2017-07-04 19:54] LABS: GLUCOSE 116 mg/dL (70-99)
[2017-07-04 19:58] LABS: CREATININE 1.1 mg/dL (0.6-1.3); GFR ESTIMATE (CALCULATED) > 59 mL/min/
[2017-07-04 19:59] LABS: UREA NITROGEN (BUN) 8 mg/dL (9-23)
[2017-07-04 20:04] LABS: TROP-I INTERPRETATION NEGATIVE; TROPONIN-I < 0.01 ng/mL (0.0-0.30)
[2017-07-04] MEDS ORDERED: ZOFRAN ODT4 MG PO (22:44)
[2017-07-04 23:04] LABS: TROP-I INTERPRETATION NEGATIVE; TROPONIN-I < 0.01 ng/mL (0.0-0.30)
[2017-07-04 23:13] VITALS: BP 124/79
== END 2017-07-04 23:17 | disposition home or self-care (01) ==
LOC: EME 19:00
PROVIDERS: Nurse Practitioner Acute Care
DX: R07.9 Chest pain, unspecified (principal); M25.512 Pain in left shoulder; R11.0 Nausea; Z88.0 Allergy status to penicillin; Z88.1 Allergy status to other antibiotic agents; Z88.2 Allergy status to sulfonamides
CPT/HCPCS: 71046; 80048; 84484; 85027; 93005; 99281; 99285

== ENCOUNTER 2017-08-01 23:25 | Emergency (ER) | payer BC ==
[~2017-08-01] VITALS: Ht 157.5 cm; Wt 89.1 kg
[2017-08-02 01:45] VITALS: BP 132/86
== END 2017-08-02 02:08 | disposition home or self-care (01) ==
LOC: EME → EDBD 23:25 → EME 08-02 02:08
DX: G89.18 Other acute postprocedural pain (principal); R07.9 Chest pain, unspecified; Z98.890 Other specified postprocedural states; K21.9 Gastro-esophageal reflux disease without esophagitis; J45.909 Unspecified asthma, uncomplicated; M79.7 Fibromyalgia; G25.81 Restless legs syndrome; E06.3 Autoimmune thyroiditis; F32.9 Major depressive disorder, single episode, unspecified; F41.9 Anxiety disorder, unspecified; Z90.49 Acquired absence of other specified parts of digestive tract; Z88.2 Allergy status to sulfonamides; Z88.1 Allergy status to other antibiotic agents; Z88.0 Allergy status to penicillin
CPT/HCPCS: 71046; 74019; 99281; 99284; J1200

== ENCOUNTER → 2017-08-01 | Outpatient (CLI) | payer BC ==
[~2017-08-01] VITALS: Ht 157.5 cm; Wt 90.7 kg
[~2017-08-01] MED LIST changes: +TOPROL XL25 MG PO
== END | disposition home or self-care (01) ==
LOC: AMB 13:15
PROC: 0DB48ZX Excision of Esophagogastric Junction, Via Natural or Artificial Opening Endoscopic, Diagnostic (ICD-10-PCS; principal; 2017-08-01)
DX: K21.9 Gastro-esophageal reflux disease without esophagitis (principal); R13.10 Dysphagia, unspecified; R11.0 Nausea; R10.11 Right upper quadrant pain; J45.909 Unspecified asthma, uncomplicated; E06.3 Autoimmune thyroiditis; Z90.49 Acquired absence of other specified parts of digestive tract; Z80.1 Family history of malignant neoplasm of trachea, bronchus and lung; Z80.3 Family history of malignant neoplasm of breast; Z80.6 Family history of leukemia; Z82.49 Family history of ischemic heart disease and other diseases of the circulatory system; Z83.3 Family history of diabetes mellitus; Z82.3 Family history of stroke; Z88.0 Allergy status to penicillin; Z88.2 Allergy status to sulfonamides; Z91.018 Allergy to other foods
CPT/HCPCS: 88305; 93005; J2250; J3010

== ENCOUNTER 2017-09-29 17:41 | Observation (INO) | payer BC ==
[~2017-09-29] VITALS: Ht 157.5 cm; Wt 90.2 kg
[2017-09-29] MEDS ORDERED: PRENATAL VITAM1 EA11 PO (18:15)
[2017-09-29] MEDS ORDERED: VITAMIN D31000 UNI2 PO (18:16)
[2017-09-29] MEDS ORDERED: VITAMIN D-3 401 EACH PO (18:17)
[2017-09-29 19:11] LABS: APPEARANCE CLEAR ((CLEAR)); BILIRUBIN NEGATIVE; BLOOD NEGATIVE; COLOR STRAW ((YELLOW)); GLUCOSE (STRIP) NEGATIVE; KETONES NEGATIVE; LEUKOCYTES NEGATIVE; NITRITE NEGATIVE; PROTEIN (STRIP) NEGATIVE; SPECIFIC GRAVITY 1.012 (1.000-1.030); UCUL ADDED? NO; UROBILINOGEN 0.2 MG/DL (0.2-1.0)
[2017-09-29 19:16] LABS: HEMATOCRIT 40.1 % (36.0-46.0); HEMOGLOBIN 13.5 G/DL (11.9-15.5); MCH 27.4 PG (29.0-34.0); MCHC 33.7 G/DL (30.0-36.0); MCV 81.3 FL (83-99); PLATELET COUNT 236 K/uL (156-360); RBC DIS.WIDTH-CV 14.1 % (11.8-14.6); RBC DIS.WIDTH-SD 41.4 % (39-53); RED BLOOD COUNT 4.93 M/uL (3.80-5.20); WHITE BLOOD COUNT 15.6 K/uL (4.1-10.2)
[2017-09-29 19:25] LABS: PTT 35.2 SEC (25-37)
[2017-09-29 19:28] LABS: ALBUMIN 4.5 g/dL (3.2-4.8); CHLORIDE 103 mEq/L (99-109); POTASSIUM 3.6 mEq/L (3.7-5.4)
[2017-09-29 19:29] LABS: SODIUM 139 mEq/L (136-147)
[2017-09-29 19:31] LABS: GLUCOSE 96 mg/dL (70-99); TOTAL PROTEIN 7.7 g/dL (6.4-8.3)
[2017-09-29 19:33] LABS: TOTAL BILIRUBIN 0.3 mg/dL (0.0-1.0)
[2017-09-29 19:34] LABS: ALKALINE PHOSPHATASE 83 IU/L (3-129); CREATININE 0.7 mg/dL (0.6-1.3); GFR ESTIMATE (CALCULATED) > 59 mL/min/
[2017-09-29 19:35] LABS: UREA NITROGEN (BUN) 13 mg/dL (9-23)
[2017-09-29 19:36] LABS: AST (GOT) 18 IU/L (2-34)
[2017-09-29 19:37] LABS: ALT (GPT) 26 IU/L (3-49)
[2017-09-29 19:38] LABS: LIPASE 15 U/L (1.0-51.0)
[2017-09-30] MEDS ORDERED: VITAMIN D2000 UNIT PO (01:31)
[2017-09-30] MEDS ORDERED: EXCEDRIN EXTRA1 EACH PO (01:31)
[2017-09-30 02:56] VITALS: BP 123/73
[2017-09-30 08:33] VITALS: BP 115/66
[2017-09-30 08:44] LABS: HEMATOCRIT 36.6 % (36.0-46.0); HEMOGLOBIN 12.4 G/DL (11.9-15.5); MCH 27.7 PG (29.0-34.0); MCHC 33.9 G/DL (30.0-36.0); MCV 81.9 FL (83-99); PLATELET COUNT 219 K/uL (156-360); RBC DIS.WIDTH-CV 14.3 % (11.8-14.6); RBC DIS.WIDTH-SD 41.9 % (39-53); RED BLOOD COUNT 4.47 M/uL (3.80-5.20); WHITE BLOOD COUNT 7.7 K/uL (4.1-10.2)
[2017-09-30 09:06] LABS: CHLORIDE 106 MEQ/L (99-109); CREATININE 0.6 MG/DL (0.6-1.3); GFR ESTIMATE (CALCULATED) > 59 mL/min/; GLUCOSE 95 mg/dL (70-99); POTASSIUM 3.7 MEQ/L (3.7-5.4); SODIUM 138 MEQ/L (136-147); UREA NITROGEN (BUN) 7 mg/dL (9-23)
[2017-09-30] MEDS ORDERED: ZOFRAN4 MG PO (11:01)
[2017-09-30 12:53] VITALS: BP 117/71
== END 2017-09-30 14:02 | disposition home or self-care (01) ==
LOC: EME 17:41 → EDOF 09-30 01:31 → 4SOUTH 09-30 01:31 → EDOF 09-30 01:31 → ENRESERV 09-30 01:32 → 4SOUTH 09-30 02:42
PROVIDERS: Emergency Medicine; Internal Medicine
DX: R11.2 Nausea with vomiting, unspecified (principal); R10.84 Generalized abdominal pain; R00.2 Palpitations; D72.829 Elevated white blood cell count, unspecified; E06.3 Autoimmune thyroiditis; M79.7 Fibromyalgia; Z98.890 Other specified postprocedural states; Z90.49 Acquired absence of other specified parts of digestive tract; Z82.49 Family history of ischemic heart disease and other diseases of the circulatory system; Z79.82 Long term (current) use of aspirin; Z88.0 Allergy status to penicillin; Z88.1 Allergy status to other antibiotic agents; Z88.2 Allergy status to sulfonamides; Z88.8 Allergy status to other drugs, medicaments and biological substances; Z91.018 Allergy to other foods; Z91.048 Other nonmedicinal substance allergy status
CPT/HCPCS: 74177; 76856; 80048; 80053; 81003; 81025; 83690; 85027; 85610; 85730; 99281; 99285; G0378; J1630; J1650; J2270; J2405; J7030; S0028